=== PATIENT | female | born 1995 | race Two or more races ===

== ENCOUNTER 2019-02-04 21:39 | Emergency (ER) | payer MEDICAID ==
[~2019-02-04] VITALS: Ht 170.2 cm; Wt 164.0 kg
[2019-02-04] MEDS ORDERED: MORPHINE SULFATE 10 MG/ML CPJ IM ONE (23:15)
[2019-02-04] MEDS ORDERED: METHOCARBAMOL 750MG TABLET PO SCH (23:15)
[2019-02-04] MEDS ORDERED: KETOROLAC 60MG/2ML VIAL IM ONE (23:15)
[2019-02-04 23:44] LABS: CLARITY URINE CLOUDY (CLEAR); COLOR URINE DARK YELLOW (YELLOW); KETONES URINE TRACE (NEGATIVE); LEUKOCYTE ESTERASE URINE TRACE (NEGATIVE); NITRITE URINE NEGATIVE (NEGATIVE); OCCULT BLOOD URINE 3+ (NEGATIVE); PH URINE 5.5 (4.5-8.0); PROTEIN URINE 1+ (NEGATIVE); SPECIFIC GRAVITY URINE 1.031 (1.005-1.030)
[2019-02-05 03:42] VITALS: BP 129/74
== END 2019-02-05 03:44 | disposition home or self-care (01) ==
LOC: ER 21:39
DX: M54.9 Dorsalgia, unspecified (principal); E66.01 Morbid (severe) obesity due to excess calories
CPT/HCPCS: 81003; 81025; 87086; 96372; 99283; J1885; J2270

== ENCOUNTER 2020-08-29 09:33 | Emergency (ER) | payer MEDICAID, OTHER ==
[~2020-08-29] VITALS: Ht 170.2 cm; Wt 175.0 kg
[2020-08-29 10:18] LABS: BASOPHILS % 0.7 % (0.0-2.0); EOSINOPHILS % 0.8 % (0.0-5.0); HEMATOCRIT. 32.4 % (36.0-48.0); HEMOGLOBIN. 10.8 g/dL (12.0-16.0); LYMPHOCYTES % 26.8 % (20.0-50.0); MEAN CORPUSCULAR HEMOGLOBIN 25.3 pg (28.0-32.0); MEAN CORPUSCULAR VOLUME 76.1 fL (81.0-99.0); MEAN PLATELET VOLUME 8.3 fl (7.4-10.4); MONOCYTES % 6.9 % (2.0-8.0); NEUTROPHILS % 64.8 % (40.0-76.0); PLATELET 277 x1000/uL (130-400); RED BLOOD CELL COUNT 4.25 mill/uL (4.2-5.4); RED CELL DISTRIBUTION WIDTH 16.4 % (11.6-14.6)
[2020-08-29 10:26] LABS: CHLORIDE 109 mEq/L (98-107)
[2020-08-29 11:02] LABS: HCG SCREEN NEGATIVE
[2020-08-29 13:35] VITALS: BP 147/82
[2020-08-29] MEDS ORDERED: IOHEXOL-350 100 ML BOTTLE ONE (15:15)
== END 2020-08-29 14:10 | disposition home or self-care (01) ==
LOC: ER 09:33
DX: R07.9 Chest pain, unspecified (principal)
CPT/HCPCS: 36415; 71045; 71275; 80053; 83880; 84484; 84703; 85025; 85379; 93005; 99285; Q9967

== ENCOUNTER 2022-10-28 23:38 | Emergency (ER) | payer MEDICAID, OTHER ==
[~2022-10-28] VITALS: Ht 172.7 cm; Wt 214.1 kg
[2022-10-28 23:54] VITALS: TEMP 98.2; O2SAT 98
[2022-10-29] MEDS ORDERED: OFLO5DRO4 LEFT EAR (01:32)
[2022-10-29 01:48] VITALS: BP 133/96; PULSE 111; RESP 20
== END 2022-10-29 01:55 | disposition home or self-care (01) ==
LOC: ER 23:55
DX: H60.92 Unspecified otitis externa, left ear (principal)
CPT/HCPCS: 81025; 99283